=== PATIENT | female | born 1985 | race Caucasian/White ===

== ENCOUNTER 2018-10-04 22:05 | Emergency (ER) | payer MEDICAID ==
[~2018-10-04] VITALS: Ht 165.1 cm; Wt 68.0 kg
[2018-10-04 22:13] VITALS: Ht 165.1 cm; Wt 68.0 kg
[2018-10-04 23:10] VITALS: BP 128/79
== END 2018-10-04 23:10 | disposition home or self-care (01) ==
LOC: ED 22:05
DX: S00.81XA Abrasion of other part of head, initial encounter (principal); S60.511A Abrasion of right hand, initial encounter; S60.512A Abrasion of left hand, initial encounter; Y04.8XXA Assault by other bodily force, initial encounter; Y93.89 Activity, other specified; Y92.89 Other specified places as the place of occurrence of the external cause; Y99.8 Other external cause status